=== PATIENT | male | born 1950 | race Caucasian/White ===

== ENCOUNTER 2019-12-11 17:28 | Emergency (ER) | payer OTHER ==
[2019-12-11 17:56] VITALS: BMI 26.3
[2019-12-11 18:09] VITALS: BP 120/76; PULSE 91; TEMP 98
== END 2019-12-11 18:13 | disposition home or self-care (01) ==
LOC: JER 17:28
DX: R05 Cough (principal); F10.929 Alcohol use, unspecified with intoxication, unspecified
CPT/HCPCS: 71045-TC-FY; 99283-25

== ENCOUNTER 2020-02-21 17:26 | Emergency (ER) | payer OTHER ==
[2020-02-21 17:36] VITALS: BMI 23.6
[2020-02-21] MEDS ORDERED: SODIUM CHLORIDE 0.9% 1000 ML INFUS.BAG IV ONE (17:51)
[2020-02-21] MEDS ORDERED: LORazepam 2 MG/ML SDV VIAL IVPUSH ONE (17:51)
[2020-02-21] MEDS ORDERED: LORazepam 2 MG/ML SDV VIAL ONE (17:53)
[2020-02-21] MEDS ORDERED: LIDOCAINE 5% TOPICAL PATCH TP ONE (18:09)
[2020-02-21 18:21] LABS: BASO % 0.7 % (0-2.0); HEMATOCRIT 38.6 % (35.4-49); HEMOGLOBIN 12.8 GM/dL (11.7-16.9); LYMPH % 15.9 % (8-40); MCH 30.9 pg (25.7-33.7); MCHC 33.1 g/dl (32.0-35.9); MEAN CELL VOLUME 93.3 fl (80-96); MEAN PLT VOLUME 7.3 fl (7.5-11.1); NEUT % 76.4 % (42.8-82.8); PLATELET COUNT 218 K/MM3 (134-434); RBC 4.14 M/mm3 (4.00-5.60); RDW 16.4 % (11.9-15.9); WHITE BLOOD COUNT 5.6 K/mm3 (4.0-10.0)
[2020-02-21] MEDS ORDERED: LIDOCAINE 5% TOPICAL PATCH ONE (18:25)
[2020-02-21 18:28] LABS: INR 0.94 (0.83-1.09); PROTHROMBIN TIME (PATIENT) 11.1 SEC (9.7-13.0)
[2020-02-21 18:31] LABS: ACTIVATED PTT 27.7 SECONDS (25.2-36.5)
--- NOTE | 2020-02-21 18:45 | PDOC ---
Documentation entered by Celso Corado SCRIBE, acting as scribe for Taylor Giang DO. Taylor Giang DO: This documentation has been prepared by the Mak sadler Xhesika, SCRIBE, under my direction and personally reviewed by me in its entirety. I confirm that the documentation accurately reflects all work, treatment, procedures, and medical decision making performed by me. History of Present Illness - General Chief Complaint: Alcohol intoxication Stated Complaint: HYPERTENSION Time Seen by Provider: 02/21/20 17:51 History Source: Patient, Spouse Exam Limitations: No Limitations - History of Present Illness Initial Comments: 02/21/20 18:09 The patient is a 69 year old male with a significant PMH of asthma, HLD, HTN, and etoh abuse who presents to the emergency department from PCP office for elevated BP and alcohol withdrawal. Per spouse at bedside, the pt saw his PCP for follow up and was noted to be hypertensive and tremulous, prompting his arrival to the ED. states the pt had a fall on 02/02 due to etoh intoxication and was noted to have Rib 7-9 fracture on XR. Pt reports L rib pain. states he drinks 1 pint of vodka daily. Pt states his last drink was 10pm yesterday. Pt's states he was last in detox 1 month ago. The patient denies chest pain, shortness of breath, headache and dizziness. Denies fever, chills, cough, nausea, vomiting, diarrhea and constipation. Allergies: NKDA PCP: Philomena Purcell Past History - Medical History Allergies/Adverse Reactions: Allergies Allergy/AdvReac Type Severity Reaction Status Date / Time No Known Drug Allergies Allergy Verified 02/21/20 18:21 cat Allergy Uncoded 02/21/20 18:06 dog Allergy Uncoded 02/21/20 18:06 seafood Allergy Uncoded 02/21/20 18:06 COPD: Yes HTN: Yes - Psycho-Social/Smoking History Smoking History: Former smoker Have you smoked in the past 12 months: No Information on smoking cessation initiated: No - Substance Abuse Hx (Audit-C & DAST Scrn) How often the patient has a drink containing alcohol: 4 0r more times/wk Number of drinks the patient has on a typical day: 10 or more Score: In Men: 4 or > Positive; In Women: 3 or > Positive: 8 Screen Result (Pos requires Nsg. Audit-10AR): Positive In the last yr the pt used illegal drug/Rx for NonMed reason: No Score: Yes response is considered Positive: 0 Screen Result (Positive result requires Nsg. DAST-10): Negative Review of Systems - Review of Systems Able to Perform ROS?: Yes Comments:: 02/21/20 18:12 GENERAL/CONSTITUTIONAL: No fever or chills. No weakness. +tremors HEAD, EYES, EARS, NOSE AND THROAT: No change in vision. No ear pain or discharge. No sore throat. CARDIOVASCULAR: No chest pain or shortness of breath. RESPIRATORY: No cough, wheezing, or hemoptysis. GASTROINTESTINAL: No nausea, vomiting, diarrhea or constipation. GENITOURINARY: No dysuria, frequency, or change in urination. MUSCULOSKELETAL: +L rib pain. No neck or back pain. SKIN: No rash NEUROLOGIC: No headache, vertigo, loss of consciousness, or change in strength/sensation. ENDOCRINE: No increased thirst. No abnormal weight change. HEMATOLOGIC/LYMPHATIC: No anemia, easy bleeding, or history of blood clots. ALLERGIC/IMMUNOLOGIC: No hives or skin allergy. *Physical Exam - Vital Signs Last Vital Signs Temp Pulse Resp BP Pulse Ox 98.5 F 120 H 20 160/93 96 02/21/20 17:33 02/21/20 17:33 02/21/20 17:33 02/21/20 17:33 02/21/20 17:33 - Physical Exam 02/21/20 18:13 GENERAL: Awake, alert, and fully oriented, in no acute distress. +tremulous HEAD: No signs of trauma EYES: PERRLA, EOMI, sclera anicteric, conjunctiva clear ENT: Auricles normal inspection, hearing grossly normal, nares patent, oropharynx clear without exudates. +tongue fasciculation NECK: Normal ROM, supple, no lymphadenopathy, JVD, or masses LUNGS: Breath sounds equal, clear to auscultation bilaterally. No wheezes, and no crackles HEART: +tachy, no murmurs, rubs or gallops ABDOMEN: Soft, nontender, normoactive bowel sounds. No guarding, no rebound. No masses UPPER EXTREMITIES: + L lower rib pain TTP. EXTREMITIES: Normal range of motion, no edema. No clubbing or cyanosis. No cords, erythema, or tenderness NEUROLOGICAL: Cranial nerves II through XII grossly intact. SKIN: Warm, Dry, normal turgor, no rashes lesions noted. Heart Score/ECG Review - ECG Intrepretation Comment:: 02/21/20 18:45 sinsu at 97, nl axis, nl interval, no acute st/t wave findings ED Treatment Course - LABORATORY CBC & Chemistry Diagram: 02/21/20 18:00 02/21/20 18:00 Medical Decision Making - Medical Decision Making 02/21/20 18:35 a/p: 69yo male with hx of etoh abuse who drinks 1 pint of vodka daily -pt last drink was yesterday -per the , he has been in and out of detox in the past -last detox was over 6 weeks ago -pt went to his PMD for a follow up for L rib fx from a fall in January 31 treated at [facility] for syncope/rib fx -pt c/o mild L rib pain, requesting lidoderm patch -pt sent from his PMD to the ER for eval of alcohol withdrawal symtpoms - tremulous, nauseated, tachy, hypertensive -pt has also been noncompliant with his BP meds -pt with tongue fasciculations and hand tremors -iv access obtained, labs sent, pt give ativan and ivf hydration -call placed to [facility] - he is willing to go to detox, pending labs, they have a bed available -HR and bp improved with ativan -tongue fasciculations improved 02/21/20 18:57 rib fx L chest cbc stable and reviewed etoh 76 02/21/20 19:29 labs reviewed and stable mag replaced bed available at [facility] stable for dc to [facility] for detox 02/21/20 19:40 pt stating feeling much better stable for dc to [facility] pt agreeable to go to detox Discharge - Discharge Information Problems reviewed: Yes Clinical Impression/Diagnosis: Alcohol intoxication, Alcohol withdrawal, Rib fractures Condition: Stable Disposition: HOME - Admission No - Follow up/Referral Referrals: Philomena Purcell MD [Primary Care Provider] - - Patient Discharge Instructions Patient Printed Discharge Instructions: DI for Alcohol Abuse, DI for Drug or Alcohol Withdrawal Additional Instructions: Please go straight to [facility] for detox. Please stop drinking alcohol. Please take all medications as prescribed. - Post Discharge Activity
[2020-02-21 19:04] LABS: ALBUMIN 3.9 g/dl (3.4-5.0); ALK PHOS 76 U/L (45-117); ANION GAP 17 MMOL/L (8-16); BILIRUBIN,TOTAL 0.7 mg/dL (0.2-1); BLOOD UREA NITROGEN 8.3 mg/dL (7-18); CALCIUM 8.7 mg/dL (8.5-10.1); CHLORIDE 102 mmol/L (98-107); CO2 22 mmol/L (21-32); CREATININE 0.9 mg/dL (0.55-1.3); GLUCOSE,RANDOM 72 mg/dL (74-106); MAGNESIUM 1.6 mg/dL (1.8-2.4); POTASSIUM 3.7 mmol/L (3.5-5.1); SGOT/AST 42 U/L (15-37); SGPT/ALT 33 U/L (13-61); SODIUM 140 mmol/L (136-145); TOT PROT 7.3 g/dl (6.4-8.2)
[2020-02-21] MEDS ORDERED: MAGNESIUM OXIDE 400 MG TABLET (FP) PO ONE (19:29)
[2020-02-21] MEDS ORDERED: MAGNESIUM OXIDE 400 MG TABLET (FP) ONE (19:44)
[2020-02-21 19:53] VITALS: BP 156/89; PULSE 100; TEMP 98.3
[2020-02-22] MEDS ORDERED: LIDOCAINE PATCH REMOVAL MC SCH (07:00)
--- NOTE | 2020-02-22 10:51 | EKG ---
Test Reason : Blood Pressure : / mmHG Vent. Rate : 097 BPM Atrial Rate : 097 BPM P-R Int : 170 ms QRS Dur : 076 ms QT Int : 382 ms P-R-T Axes : 065 051 067 degrees QTc Int : 485 ms NORMAL SINUS RHYTHM POSSIBLE LEFT ATRIAL ENLARGEMENT PROLONGED QT ABNORMAL ECG NO PREVIOUS ECGS AVAILABLE Confirmed by ANDREIA BANKS MD ([id number]) on 02/22/2020 10:51:32 AM Referred By: Confirmed By:ANDREIA BANKS MD
== END 2020-02-21 20:16 | disposition home or self-care (01) ==
LOC: JER 17:26
PROC: 3E033NZ Introduction of Analgesics, Hypnotics, Sedatives into Peripheral Vein, Percutaneous Approach (ICD-10-PCS; principal; 2020-02-21)
DX: F10.239 Alcohol dependence with withdrawal, unspecified (principal); S22.49XA Multiple fractures of ribs, unspecified side, initial encounter for closed fracture
CPT/HCPCS: 36415; 71045-TC-FY; 80053; 80307; 82550; 83735; 84443; 84484; 85025; 85610; 85730; 93005; 93010; 99285-25

== ENCOUNTER 2020-02-21 21:26 | Inpatient (IN) | payer OTHER ==
--- NOTE | 2020-02-21 22:37 | HP ---
CIWA Score Nausea/Vomitin-No Nausea/No Vomiting Muscle Tremors: 4-Moderate,w/Arms Extend Anxiety: 4-Mod. Anxious/Guarded Agitation: 4-Moderately Restless Paroxysmal Sweats: No Perspiration Orientation: 0-Oriented Tacttile Disturbances: 0-None Auditory Disturbances: 0-None Visual Disturbances: 0-None Headache: 0-None Present CIWA-Ar Total Score: 12 - Admission Criteria [facility] Guidelines: Admission for Medically Managed Detox: Requires at least one of the followin. CIWA greater than 12 2. Seizures within the past 24 hours 3. Delirium tremens within the past 24 hours 4. Hallucinations within the past 24 hours 5. Acute intervention needed for co occurring medical disorder 6. Acute intervention needed for co occurring psychiatric disorder 7. Severe withdrawal that cannot be handled at a lower level of care (continued vomiting, continued diarrhea, abnormal vital signs) requiring intravenous medication and/or fluids 8. Patient presents the following: CIWA greater than 12, Acute intervention needed for co-occurring med or psych disorder (s/p er eval for intoxicaton. stabilized with librium) Admission Criteria Met: Admission criteria met Admitting History and Physical - Smoking History Smoking history: Former smoker Have you smoked in the past 12 months: No Admission ROS [facility] Chief Complaint: c/o withdrawal sx's. seeking alcohol detox Allergies/Adverse Reactions: Allergies Allergy/AdvReac Type Severity Reaction Status Date / Time No Known Drug Allergies Allergy Verified 02/21/20 18:21 cat Allergy Uncoded 02/21/20 18:06 dog Allergy Uncoded 02/21/20 18:06 seafood Allergy Uncoded 02/21/20 18:06 History of Present Illness: HERE FOR ALCOHOL DETOX. CLIENT IS REFERRED BY [facility] AFTER HE PRESENTED THERE WITH ALCOHOL INTOXICATION. HE WAS STABILIZED WITH LIBRIUM AND TRANSFERRED FOR CONTINUATION OF TXMENT. CLIENT REPORTS DAILY ALCOHOL INTAKE. LAST USE 1 DAY AGO. PRESENTS WITH WITHDRAWAL SX'S. REPORTS + EYE ESTABLISHMENT GUIDE, + BLACK OUTS, DENIES WITHDRAWAL SZ. HX DETOX X2. LAST BEING6 MONTHS AGO.RELAPSING RIGHT AFTER DC. DENIES ANY CLEAN TIME IN THE PAST YEAR. A MATTER A FACT HE DENIES EVER HAVINGA PERIOD OF SOBRIETY. DENIES OTHER ILLICIT SUBSTANCE OF ABUSE. LIVES W/ , RETIRED, DENIES LEGALS. CLIENT REPORTS S/P FALL 2 WEEKS AGO. SEEN IN ER AND DC. C/O LEFT RIB PAIN 2/2 FALL AND A FEW HEALING ABRASIONS TO ARMS AND LEGS Exam Limitations: Physical Impairment ([place] LEFT EAR) - Ebola screening Have you traveled outside of the country in the last 21 days: No Have you had contact with anyone from an Ebola affected area: No Have you been sick,other than usual withdrawal symptoms: No Do you have a fever: No - Review of Systems Constitutional: Chills, Loss of Appetite, Night Sweats, Changes in sleep EENT: reports: Hearing Loss (LEFT) Respiratory: reports: No Symptoms reported Cardiac: reports: No Symptoms Reported GI: reports: Nausea, Vomiting : reports: No Symptoms Reported Musculoskeletal: reports: Other (LEFT FLANK PAIN 2/2 TO FALL 2 WEEKS AGO) Neuro: reports: Other (HEALING ABRASION TO R ARM) Endocrine: reports: No Symptoms Reported Hematology: reports: No Symptoms Reported Psychiatric: reports: Orientated x3, Anxious, Depressed Other Systems: Reviewed and Negative Patient History - Patient Medical History Hx Anemia: Yes Hx Asthma: No Hx Chronic Obstructive Pulmonary Disease (COPD): No Hx Cancer: No Hx Cardiac Disorders: No Hx Congestive Heart Failure: No Hx Hypertension: Yes Hx Hypercholesterolemia: No Hx Pacemaker: No HX Cerebrovascular Accident: No Hx Seizures: No Hx Dementia: No Hx Diabetes: No Hx Gastrointestinal Disorders: No Hx Liver Disease: No Hx Genitourinary Disorders: No Hx Sexually Transmitted Disorders: No Hx Renal Disease (ESRD): No Hx Thyroid Disease: No Hx Human Immunodeficiency Virus (HIV): No Hx Hepatitis C: No Hx Depression: Yes (NEVER TX'ED) Hx Suicide Attempt: No Hx Bipolar Disorder: No Hx Schizophrenia: No Other Medical History: ANXIETY - Patient Surgical History Past Surgical History: Yes Hx Orthopedic Surgery: Yes (R ARM FX REPAIR) Other Surgical History: LEFT EAR DEBRIDMENT Anesthesia Reaction: No - PPD History Previous Implant?: Yes Documented Results: Negative w/o proof Implanted On Prior [facility] Admission?: No PPD to be Administered?: Yes - Smoking Cessation Smoking history: Former smoker Have you smoked in the past 12 months: No Initiated information on smoking cessation: No - Substance & Tx. History Hx Alcohol Use: Yes Hx Substance Use: Yes Substance Use Type: Alcohol Hx Substance Use Treatment: Yes (DOES NOT RECALL) - Substances abused Alcohol Other (specify): VODKA Substance route: Oral Frequency: Daily Amount used: 1 PINT Age of first use: 15 Date of last use: 02/20/20 Admission Physical Exam [facility] - Physical General Appearance: Yes: Tremorous, Anxious HEENTM: Yes: EOMI, Normocephalic, Normal Voice, TYRESE, Pharynx Normal, Other (missing teeth) Respiratory: Yes: Chest Non-Tender, Lungs Clear, Normal Breath Sounds, No Respiratory Distress, No Accessory Muscle Use Neck: Yes: No masses,lesions,Nodules, Supple, Trachea in good position Breast: Yes: Breast Exam Deferred Cardiology: Yes: Regular Rhythm, S1, S2, Tachycardia Abdominal: Yes: Normal Bowel Sounds, Non Tender, Soft, Increased Bowel Sounds Genitourinary: Yes: Within Normal Limits Back: Yes: Normal Inspection, Other (left side rib tenderness) Musculoskeletal: Yes: full range of Motion, Other (unsteady gait) Extremities: Yes: Normal Capillary Refill, Normal Range of Motion, Non-Tender, Tremors Neurological: Yes: Fully Oriented, Alert, Motor Strength 5/5, Depressed Affect Integumentary: Yes: Dry, Warm, Other (healing abrasion to r forearm) Lymphatic: Yes: Within Normal Limits - Diagnostic (1) Alcohol dependence with withdrawal, uncomplicated Current Visit: Yes Status: Acute (2) Asthma Current Visit: Yes Status: Chronic Qualifiers: Asthma severity: mild Asthma persistence: intermittent Asthma complication type: uncomplicated Qualified Code(s): J45.20 - Mild intermittent asthma, uncomplicated (3) Rib pain on left side Current Visit: Yes Status: Acute Comment: S/P FALL 2 WEEKS AGO (4) HTN (hypertension) Current Visit: Yes Status: Chronic Qualifiers: Hypertension type: essential hypertension Qualified Code(s): I10 - Essential (primary) hypertension (5) Alcohol-induced mood disorder with depressive symptoms Current Visit: Yes Status: Suspected (6) Risk for falls Current Visit: Yes Status: Chronic Cleared for Admission [facility] - Detox or Rehab [facility] Level of Care: Medically Managed Detox Regimen/Protocol: Ativan Claeared for Rehab Admission: No Inpatient Rehab Admission - Rehab Decision to Admit Inpatient rehab admission?: No
[2020-02-21] MEDS ORDERED: MAGNESIUM CITRATE 300 ML BOTTLE PO PRN (22:45)
[2020-02-21] MEDS ORDERED: IBUPROFEN 400 MG TABLET (FP) PO PRN (22:45)
[2020-02-21] MEDS ORDERED: P-EPHED 60MG/TRIPROLIDI 2.5MG TABLET PO PRN (22:45)
[2020-02-21] MEDS ORDERED: DICYCLOMINE HCL 10 MG CAPSULE PO PRN (22:45)
[2020-02-21] MEDS ORDERED: METHOCARBAMOL 500 MG TABLET PO PRN (22:45)
[2020-02-21] MEDS ORDERED: ACETAMINOPHEN 325 MG TABLET (FP) PO PRN ×2 (22:45)
[2020-02-21] MEDS ORDERED: LORazepam 1 MG TABLET PO PRN (22:45)
[2020-02-21] MEDS ORDERED: MAGNESIUM HYDROX 2400MG/30ML ORAL SUSPENSION 30 ML CUP PO PRN (22:45)
[2020-02-21] MEDS ORDERED: ONDANSETRON *ODT* 4 MG TABLET SL ONE (22:45)
[2020-02-21] MEDS ORDERED: MENTHOL/PHENOL 1 EACH UD MM PRN (22:45)
[2020-02-21] MEDS ORDERED: BISMUTH SUBSALICYLATE 524 MG/30 ML UD PO PRN (22:45)
[2020-02-21] MEDS ORDERED: MAG HYDROX/AL HYDROX/SIMETH 30 ML UNIT-DOSE CUP PO PRN (22:45)
[2020-02-21] MEDS ORDERED: guaiFENesin 200 MG/10 ML 10 ML UNIT-DOSE CUPS PO PRN (22:45)
[2020-02-22] MEDS: LORazepam 2 MG TABLET PO SCH ×5 (01:03→23:08)
[2020-02-22] MEDS: PRENATAL VITAMINS W/ FOLIC ACID TABLET (FP) PO SCH (10:17)
--- NOTE | 2020-02-22 10:46 | PN ---
S CIWA - CIWA Score Nausea/Vomitin-No Nausea/No Vomiting Muscle Tremors: None Anxiety: 0-No Anxiety, at Ease Agitation: 0-Normal Activity Orientation: 1-Uncertain about Date Tacttile Disturbances: 0-None Auditory Disturbances: 0-None Visual Disturbances: 0-None Headache: 0-None Present S Progress Note (SOAP) Subjective: Patient was examined in the room. Patient was in no acute distress. Patient stated he is feeling better and had no further complaints. Objective: 02/22/20 10:47 General: Patient alert and in no acute distress, WNWD Mental status: Patient judgment intact MSK/Neuro: Patient MS 5/5 Gait: Patient ambulates properly, gait steady skin: no visible lesions, normal color Last Vital Signs Temp Pulse Resp BP Pulse Ox 97.8 F 98 H 18 138/77 97 02/22/20 08:55 02/22/20 08:55 02/22/20 08:55 02/22/20 08:55 02/22/20 08:55 Current Medications Generic Name Dose Route Start Last Admin Trade Name Freq PRN Reason Stop Dose Admin Acetaminophen 650 mg 02/21/20 22:45 Tylenol - PO Q6H PRN PAIN LEVEL 4 - 6 Acetaminophen 650 mg 02/21/20 22:45 Tylenol - PO Q6H PRN FEVER Al Hydroxide/Mg Hydroxide 30 ml 02/21/20 22:45 Mylanta Oral Suspension - PO Q6H PRN DYSPEPSIA Bismuth Subsalicylate 524 mg 02/21/20 22:45 Pepto-Bismol - PO Q1H PRN DIARRHEA Dicyclomine HCl 10 mg 02/21/20 22:45 Bentyl - PO 02/27/20 22:46 Q6H PRN Abdominal Cramping Eucalyptus/Menthol/Phenol/Sorbitol 1 each 02/21/20 22:45 Cepastat Lozenge - MM 02/27/20 22:45 Q4H PRN SORE THROAT Guaifenesin 10 ml 02/21/20 22:45 Robitussin - PO Q6H PRN COUGH Hydroxyzine Pamoate 25 mg 02/21/20 22:45 Vistaril - PO 02/27/20 22:46 Q4HWA PRN ANXIETY Ibuprofen 400 mg 02/21/20 22:45 Motrin - PO Q6H PRN PAIN LEVEL 1 - 3 Lidocaine 1 patch 02/22/20 10:00 Lidoderm Patch - TP DAILY [facility] Lorazepam 1 mg 02/23/20 05:00 Ativan - PO 02/23/20 23:01 0500,1100,1700,2300 [facility] Lorazepam 1 mg 02/21/20 22:45 Ativan - PO 02/23/20 23:59 Q4H PRN Symptoms of Withdrawal Lorazepam 2 mg 02/21/20 23:00 02/22/20 10:17 Ativan PO 02/22/20 23:01 2 mg 0500,1100,1700,2300 CAROL Administration Lorazepam 0.5 mg 02/24/20 05:00 Ativan - PO 02/24/20 23:01 Q6H CRAOL Lorazepam 0.5 mg 02/24/20 00:00 Ativan - PO 02/24/20 23:59 Q4H PRN Symptoms of Withdrawal Lorazepam 0.5 mg 02/25/20 05:00 Ativan - PO 02/25/20 05:01 ONCE ONE Magnesium Citrate 300 ml 02/21/20 22:45 Citroma - PO Q48H PRN CONSTIPATION Magnesium Hydroxide 30 ml 02/21/20 22:45 Milk Of Magnesia - PO PRN PRN CONSTIPATION Melatonin 5 mg 02/22/20 22:00 Melatonin PO HS [facility] Methocarbamol 500 mg 02/21/20 22:45 Robaxin - PO 02/27/20 22:45 Q6H PRN MUSCLE SPASMS Miscellaneous 1 each 02/22/20 22:00 Lidoderm Patch Removal MC DAILY@2200 [facility] Multivit/Folic Acid/Iron 1 tab 02/22/20 10:00 02/22/20 10:17 Vitamins ([facility]) - PO 1 tab DAILY [facility] Administration Pseudoephedrine/Triprolidine 1 combo 02/21/20 22:45 Actifed - PO Q6H PRN NASAL CONGESTION Thiamine HCl 100 mg 02/22/20 22:00 Vitamin B1 - PO HS [facility] Discontinued Medications Generic Name Dose Route Start Last Admin Trade Name Freq PRN Reason Stop Dose Admin Ondansetron HCl 4 mg 02/21/20 22:45 02/22/20 00:37 Zofran Odt - SL 02/21/20 22:46 4 mg ONCE ONE Administration Tuberculin PPD 5 units 02/21/20 22:45 02/22/20 01:05 Tubersol ([facility]) 5ml Vial ID 02/21/20 22:46 5 tu ONCE ONE Administration Assessment: 02/22/20 10:48 1. Patient has been started on ativan protocol for alcohol abuse. 02/22/20 10:52 Plan: 1. Patient currently on ativan protocol due to alcohol abuse.
[2020-02-22] MEDS: LIDOCAINE 5% TOPICAL PATCH TP SCH (11:21)
[2020-02-22 12:30] LABS: HEMATOCRIT 36.4 % (35.4-49); MCHC 33.1 g/dl (32.0-35.9); MEAN CELL VOLUME 93.9 fl (80-96); MEAN PLT VOLUME 7.8 fl (7.5-11.1); PLATELET COUNT 197 K/MM3 (134-434); RBC 3.88 M/mm3 (4.00-5.60); RDW 16.2 % (11.9-15.9); WHITE BLOOD COUNT 3.8 K/mm3 (4.0-10.0)
[2020-02-22 12:47] LABS: ALBUMIN 3.6 g/dl (3.4-5.0); BILIRUBIN,TOTAL 0.9 mg/dL (0.2-1); BLOOD UREA NITROGEN 7.8 mg/dL (7-18); CALCIUM 8.8 mg/dL (8.5-10.1); CREATININE 0.7 mg/dL (0.55-1.3); POTASSIUM 3.3 mmol/L (3.5-5.1)
[2020-02-22 12:49] LABS: TOT PROT 6.4 g/dl (6.4-8.2)
--- NOTE | 2020-02-22 13:02 | CONSULT ---
[facility] Psychiatric Consult - Data Date of interview: 02/22/20 Admission source: [facility] Identifying data: First visit to [facility] and admission to [address] [place] [address] for this 69 y/o male self-referred for detoxification treatment. DENEEN issue : alcohol. Patient is (living with spouse), father of three, domiciled, unemployed (retired from the [employer]) and supported on his pension benefits. Substance Abuse History: Discussed with the patient. DENEEN profile as follows : Smoking history: Former smoker. Have you smoked in the past 12 months: No. Initiated information on smoking cessation: No. Substance & Tx. History. Hx Alcohol Use: Yes. Hx Substance Use: Yes. Substance Use Type: Alcohol. Hx Substance Use Treatment: Yes (DOES NOT RECALL). Substances abused. Alcohol. Other (specify): VODKA. Substance route: Oral. Frequency: Daily. Amount used: 1 PINT. Age of first use: 15. Date of last use: 02/20/20 Medical History: Medical history is remarkable for anemia, hypertension and hearing impediment (left ear). History of recent falls (two weeks ago) during ETOH intoxication. Psychiatric History: Patient denies history of psychiatric hospitalizations, OPD care or suicide attempts. Physical/Sexual Abuse/Trauma History: No history of abuse (self-report). Additional Comment: Toxicology not found in H+P report. Mental Status Exam - Mental Status Exam Alert and Oriented to: Time, Place, Person Cognitive Function: Good Patient Appearance: Well Groomed (short stature) Mood: Withdrawn, Hopeful Affect: Appropriate, Normal Range Patient Behavior: Fatigued, Appropriate, Cooperative Speech Pattern: Clear, Appropriate Voice Loudness: Normal Thought Process: Intact, Goal Oriented Thought Disorder: Not Present Hallucinations: Denies Suicidal Ideation: Denies Homicidal Ideation: Denies Insight/Judgement: Poor Sleep: Well Appetite: Good Gait/Station: Normal Psychiatric Findings - Problem List ([place] 1, 2,3) (1) Alcohol dependence with withdrawal, uncomplicated Current Visit: Yes Status: Acute - Initial Treatment Plan Initial Treatment Plan: Psychoeducation. Sleep hygiene. Support. Detoxification. Observation.
[2020-02-22] MEDS ORDERED: PATIENT'S OWN MEDICATION (NON-FORMULARY) (Lisinopril/Hydrochlorothiazide [Lisinopril-Hctz PO SCH (16:00)
[2020-02-22 17:29] LABS: EPI CELLS 1 /uL (0-25.1); HYALINE CASTS 3 /uL (0-3.1); PH,URINE >= 9.0 (5.0-8.0); URINE APPEARANCE CLEAR; URINE BACTERIA >9,000 /uL (0-1359); URINE BILIRUBIN NEGATIVE (NEGATIVE); URINE COLOR YELLOW; URINE GLUCOSE (UA) NEGATIVE (NEGATIVE); URINE KETONE TRACE (NEGATIVE); URINE LEUK ESTERASE 2+ (NEGATIVE); URINE NITRITE POSITIVE (NEGATIVE); URINE PROTEIN TRACE (NEGATIVE); URINE RBC 40 /uL (0-23.9); URINE WBC 254 /uL (0-25.8)
[2020-02-22] MEDS: HYDROCHLOROTHIAZIDE 12.5 MG CAPSULE (FP) PO SCH (18:32)
[2020-02-22] MEDS: LISINOPRIL 10 MG TABLET (FP) PO SCH (18:32)
[2020-02-22] MEDS: amLODIPine BESYLATE 5 MG TABLET (FP) PO SCH (18:33)
[2020-02-22] MEDS: LIDOCAINE PATCH REMOVAL MC SCH (23:07)
[2020-02-22] MEDS: MELATONIN 5 MG TABLETS PO SCH (23:08)
[2020-02-22] MEDS: THIAMINE HCL 100 MG TABLET (FP) PO SCH (23:08)
[2020-02-23] MEDS: LORazepam 1 MG TABLET PO SCH ×4 (05:50→23:01)
--- NOTE | 2020-02-23 10:02 | PN ---
S CIWA - CIWA Score Nausea/Vomitin-No Nausea/No Vomiting Muscle Tremors: 2 Anxiety: 3 Agitation: 0-Normal Activity Paroxysmal Sweats: 3 Orientation: 0-Oriented Tacttile Disturbances: 0-None Auditory Disturbances: 0-None Visual Disturbances: 0-None Headache: 0-None Present CIWA-Ar Total Score: 8 [facility] Progress Note (SOAP) Subjective: c/o anxiety, shakes, and sweats. Objective: 02/23/20 10:01 Vital Signs 02/23/20 02/23/20 06:40 09:44 Temperature 97.9 F 97.4 F L Pulse Rate 88 87 Respiratory 18 18 Rate Blood Pressure 129/79 126/63 O2 Sat by Pulse 96 96 Oximetry (%) Laboratory Last Values WBC 3.8 K/mm3 (4.0-10.0) L 02/22/20 08:40 RBC 3.88 M/mm3 (4.00-5.60) L 02/22/20 08:40 Hgb 12.0 GM/dL (11.7-16.9) 02/22/20 08:40 Hct 36.4 % (35.4-49) 02/22/20 08:40 MCV 93.9 fl (80-96) 02/22/20 08:40 MCH 31.0 pg (25.7-33.7) 02/22/20 08:40 MCHC 33.1 g/dl (32.0-35.9) 02/22/20 08:40 RDW 16.2 % (11.9-15.9) H 02/22/20 08:40 Plt Count 197 K/MM3 (134-434) 02/22/20 08:40 MPV 7.8 fl (7.5-11.1) 02/22/20 08:40 Sodium 139 mmol/L (136-145) 02/22/20 08:40 Potassium 3.3 mmol/L (3.5-5.1) L 02/22/20 08:40 Chloride 100 mmol/L (98-107) 02/22/20 08:40 Carbon Dioxide 29 mmol/L (21-32) 02/22/20 08:40 Anion Gap 10 MMOL/L (8-16) 02/22/20 08:40 BUN 7.8 mg/dL (7-18) 02/22/20 08:40 Creatinine 0.7 mg/dL (0.55-1.3) 02/22/20 08:40 Est GFR (CKD-EPI)AfAm 111.60 02/22/20 08:40 Est GFR (CKD-EPI)NonAf 96.29 02/22/20 08:40 Random Glucose 111 mg/dL (74-106) H 02/22/20 08:40 Calcium 8.8 mg/dL (8.5-10.1) 02/22/20 08:40 Total Bilirubin 0.9 mg/dL (0.2-1) 02/22/20 08:40 AST 29 U/L (15-37) 02/22/20 08:40 ALT 26 U/L (13-61) 02/22/20 08:40 Alkaline Phosphatase 66 U/L (45-117) 02/22/20 08:40 Total Protein 6.4 g/dl (6.4-8.2) 02/22/20 08:40 Albumin 3.6 g/dl (3.4-5.0) 02/22/20 08:40 Urine Color Yellow 02/22/20 16:00 Urine Appearance Clear 02/22/20 16:00 Urine pH >= 9.0 (5.0-8.0) H 02/22/20 16:00 Ur Specific [place] 1.016 (1.010-1.035) 02/22/20 16:00 Urine Protein Trace (NEGATIVE) 02/22/20 16:00 Urine Glucose (UA) Negative (NEGATIVE) 02/22/20 16:00 Urine Ketones Trace (NEGATIVE) H 02/22/20 16:00 Urine Blood Negative (NEGATIVE) 02/22/20 16:00 Urine Nitrite Positive (NEGATIVE) H 02/22/20 16:00 Urine Bilirubin Negative (NEGATIVE) 02/22/20 16:00 Urine Urobilinogen 1.0 mg/dL (0.2-1.0) 02/22/20 16:00 Ur Leukocyte Esterase 2+ (NEGATIVE) H 02/22/20 16:00 Urine WBC (Auto) 254 /uL (0-25.8) 02/22/20 16:00 Urine RBC (Auto) 40 /uL (0-23.9) 02/22/20 16:00 Urine Casts (Auto) 3 /uL (0-3.1) 02/22/20 16:00 U Epithel Cells (Auto) 1 /uL (0-25.1) 02/22/20 16:00 Urine Bacteria (Auto) >9,000 /uL (0-1359) 02/22/20 16:00 Syphilis Serology Non-reactive (NONREACTIVE) 02/22/20 08:40 HIV Ag/Ab Combo Qual Negative (NEGATIVE) 02/22/20 08:40 02/23/20 10:03 Labs noted with low K+ level, urinalysis with positive nitrate/leukocyte esterase trace. Assessment: 02/23/20 10:06 AOX3, in no acute respiratory distress. Full ROM, ambulating in the unit. Withdrawal symptoms. UTI. Hypokalemia. Plan: continue detox. Increase fluids. potassium chloride 40meq po x1dose. Cipro 500mg po bid x7days. Repeat K+ level in AM.
[2020-02-23] MEDS ORDERED: POTASSIUM CHLORIDE TABS 20 MEQ TABLET.ER (FP) PO ONE (10:09)
[2020-02-23] MEDS ORDERED: CIPROFLOXACIN 500 MG TABLET (RESTRICTED TO ID) PO SCH (10:15)
[2020-02-23] MEDS: PRENATAL VITAMINS W/ FOLIC ACID TABLET (FP) PO SCH (11:15)
[2020-02-23] MEDS: amLODIPine BESYLATE 5 MG TABLET (FP) PO SCH (11:15)
[2020-02-23] MEDS: LISINOPRIL 10 MG TABLET (FP) PO SCH (11:15)
[2020-02-23] MEDS: LIDOCAINE 5% TOPICAL PATCH TP SCH (11:15)
[2020-02-23] MEDS: HYDROCHLOROTHIAZIDE 12.5 MG CAPSULE (FP) PO SCH (11:17)
[2020-02-23] MEDS ORDERED: CLOTRIMAZOLE 1% 10 ML TOPICAL SOLUTION TP SCH (12:15)
--- NOTE | 2020-02-23 15:00 | EKG ---
Test Reason : Blood Pressure : / mmHG Vent. Rate : 099 BPM Atrial Rate : 099 BPM P-R Int : 168 ms QRS Dur : 074 ms QT Int : 378 ms P-R-T Axes : 069 043 060 degrees QTc Int : 485 ms POOR DATA QUALITY, INTERPRETATION MAY BE ADVERSELY AFFECTED NORMAL SINUS RHYTHM PROLONGED QT ABNORMAL ECG WHEN COMPARED WITH ECG OF 21-FEB-2020 18:23, NO SIGNIFICANT CHANGE WAS FOUND Confirmed by Douglas Arrington ([id number]) on 02/23/2020 3:00:28 PM Referred By: Александр Lynn Confirmed By:Douglas Arrington
[2020-02-23] MEDS: hydrOXYzine PAMOATE 25 MG CAPSULE (FP) PO PRN ×2 (19:32→23:00)
[2020-02-23] MEDS: MELATONIN 5 MG TABLETS PO SCH (23:00)
[2020-02-23] MEDS: THIAMINE HCL 100 MG TABLET (FP) PO SCH (23:00)
[2020-02-23] MEDS: LIDOCAINE PATCH REMOVAL MC SCH (23:00)
[2020-02-24] MEDS ORDERED: LORazepam 0.5 MG TABLET PO PRN
[2020-02-24] MEDS: LORazepam 0.5 MG TABLET PO SCH ×4 (05:53→22:11)
[2020-02-24] MEDS: PRENATAL VITAMINS W/ FOLIC ACID TABLET (FP) PO SCH (10:33)
[2020-02-24] MEDS: LISINOPRIL 10 MG TABLET (FP) PO SCH (10:34)
[2020-02-24] MEDS: LIDOCAINE 5% TOPICAL PATCH TP SCH (10:34)
[2020-02-24] MEDS: amLODIPine BESYLATE 5 MG TABLET (FP) PO SCH (10:34)
[2020-02-24] MEDS: HYDROCHLOROTHIAZIDE 12.5 MG CAPSULE (FP) PO SCH (10:34)
--- NOTE | 2020-02-24 13:00 | PN ---
S CIWA - CIWA Score Nausea/Vomitin-No Nausea/No Vomiting Muscle Tremors: 2 Anxiety: 1-Mildly Anxious Agitation: 1-Slight > Activity Paroxysmal Sweats: No Perspiration Orientation: 0-Oriented Tacttile Disturbances: 0-None Auditory Disturbances: 0-None Visual Disturbances: 2-Mild Sensitivity Headache: 0-None Present CIWA-Ar Total Score: 6 BHS Progress Note (SOAP) Subjective: 69 years old male was admitted on 02/21/20 for alcohol withdrawal sx management treating with ativan detox regiment seen by psychiatrist no medical intervention feels better today less tremor discuss aftercare with staff prefers new focus Objective: 02/24/20 13:01 Vital Signs - 24 hr 02/23/20 02/23/20 02/23/20 13:57 16:46 20:35 Temperature 97.3 F L 96.9 F L 97.3 F L Pulse Rate 112 H 89 99 H Respiratory 18 18 18 Rate Blood Pressure 140/90 121/68 139/82 O2 Sat by Pulse 98 98 98 Oximetry (%) 02/24/20 02/24/20 06:27 08:55 Temperature 97.9 F 96.9 F L Pulse Rate 63 91 H Respiratory 18 16 Rate Blood Pressure 101/60 113/67 O2 Sat by Pulse 100 100 Oximetry (%) Laboratory Tests 02/21/20 02/22/20 02/22/20 11:20 08:40 08:40 WBC 3.8 L RBC 3.88 L Hgb 12.0 Hct 36.4 MCV 93.9 MCH 31.0 MCHC 33.1 RDW 16.2 H Plt Count 197 MPV 7.8 Sodium Potassium Chloride Carbon Dioxide Anion Gap BUN Creatinine Est GFR (CKD-EPI)AfAm Est GFR (CKD-EPI)NonAf Random Glucose Calcium Total Bilirubin AST ALT Alkaline Phosphatase Total Protein Albumin Urine Color Urine Appearance Urine pH Ur Specific [place] Urine Protein Urine Glucose (UA) Urine Ketones Urine Blood Urine Nitrite Urine Bilirubin Urine Urobilinogen Ur Leukocyte Esterase Urine WBC (Auto) Urine RBC (Auto) Urine Casts (Auto) U Epithel Cells (Auto) Urine Bacteria (Auto) Syphilis Serology Non-reactive COVID-19 ([facility]) Not detected HIV Ag/Ab Combo Qual 02/22/20 02/22/20 02/22/20 08:40 08:40 16:00 WBC RBC Hgb Hct MCV MCH MCHC RDW Plt Count MPV Sodium 139 Potassium 3.3 L Chloride 100 Carbon Dioxide 29 Anion Gap 10 BUN 7.8 Creatinine 0.7 Est GFR (CKD-EPI)AfAm 111.60 Est GFR (CKD-EPI)NonAf 96.29 Random Glucose 111 H Calcium 8.8 Total Bilirubin 0.9 AST 29 ALT 26 Alkaline Phosphatase 66 Total Protein 6.4 Albumin 3.6 Urine Color Yellow Urine Appearance Clear Urine pH >= 9.0 H Ur Specific [place] 1.016 Urine Protein Trace Urine Glucose (UA) Negative Urine Ketones Trace H Urine Blood Negative Urine Nitrite Positive H Urine Bilirubin Negative Urine Urobilinogen 1.0 Ur Leukocyte Esterase 2+ H Urine WBC (Auto) 254 Urine RBC (Auto) 40 Urine Casts (Auto) 3 U Epithel Cells (Auto) 1 Urine Bacteria (Auto) >9,000 Syphilis Serology COVID-19 ([facility]) HIV Ag/Ab Combo Qual Negative 02/24/20 13:02 uti mr henson is on levoquen Assessment: 02/24/20 13:02 alcohol withdrawal uti Plan: ativan regiment
[2020-02-24] MEDS: hydrOXYzine PAMOATE 25 MG CAPSULE (FP) PO PRN (17:56)
[2020-02-24] MEDS: MELATONIN 5 MG TABLETS PO SCH (22:11)
[2020-02-24] MEDS: THIAMINE HCL 100 MG TABLET (FP) PO SCH (22:11)
[2020-02-24] MEDS: LIDOCAINE PATCH REMOVAL MC SCH (22:11)
[2020-02-25] MEDS ORDERED: LORazepam 0.5 MG TABLET PO ONE (05:00)
--- NOTE | 2020-02-25 09:49 | DS ---
[facility] Detox Discharge Summary Admission Date: 02/21/20 Discharge Date: 02/25/20 - History Present History: Alcohol Dependence Additional Comments: 69 years old male was admitted on 02/21/20 for alcohol withdrawal sx management treated with ativan detox regiment seen by psychiatrist no medical intervention mr henson has completed the ativan regiment and is tolerated well General Appearance: Yes: less Tremorous, mild Anxious HEENTM: Yes: EOMI, Normocephalic, Normal Voice, TYRESE, Pharynx Normal, Other (missing teeth) Respiratory: Yes: Chest Non-Tender, Lungs Clear, Normal Breath Sounds, No Respiratory Distress, No Accessory Muscle Use Neck: Yes: No masses,lesions,Nodules, Supple, Trachea in good position Breast: Yes: Breast Exam Deferred Cardiology: Yes: Regular Rhythm, S1, S2, Tachycardia Abdominal: Yes: Normal Bowel Sounds, Non Tender, Soft, Increased Bowel Sounds Genitourinary: Yes: Within Normal Limits Back: Yes: Normal Inspection, Other (left side rib tenderness) Musculoskeletal: Yes: full range of Motion, Other (unsteady gait) Extremities: Yes: Normal Capillary Refill, Normal Range of Motion, Non-Tender, less Tremors Neurological: Yes: Fully Oriented, Alert, Motor Strength 5/5, Depressed Affect Integumentary: Yes: Dry, Warm, Other (healing abrasion to r forearm) Lymphatic: Yes: Within Normal Limits Pertinent Past History: time for discharge 35 minutes - Physical Exam Results Vital Signs: Vital Signs Temperature 97.2 F L 02/25/20 07:00 Pulse Rate 70 02/25/20 07:00 Respiratory Rate 18 02/25/20 07:00 Blood Pressure 120/73 02/25/20 07:00 O2 Sat by Pulse Oximetry (%) 97 02/25/20 07:00 Pertinent Admission Physical Exam Findings: alcohol withdrawal Laboratory Tests 02/21/20 02/22/20 02/22/20 11:20 08:40 08:40 WBC 3.8 L RBC 3.88 L Hgb 12.0 Hct 36.4 MCV 93.9 MCH 31.0 MCHC 33.1 RDW 16.2 H Plt Count 197 MPV 7.8 Sodium Potassium Chloride Carbon Dioxide Anion Gap BUN Creatinine Est GFR (CKD-EPI)AfAm Est GFR (CKD-EPI)NonAf Random Glucose Calcium Total Bilirubin AST ALT Alkaline Phosphatase Total Protein Albumin Urine Color Urine Appearance Urine pH Ur Specific [place] Urine Protein Urine Glucose (UA) Urine Ketones Urine Blood Urine Nitrite Urine Bilirubin Urine Urobilinogen Ur Leukocyte Esterase Urine WBC (Auto) Urine RBC (Auto) Urine Casts (Auto) U Epithel Cells (Auto) Urine Bacteria (Auto) Syphilis Serology Non-reactive COVID-19 ([facility]) Not detected HIV Ag/Ab Combo Qual 02/22/20 02/22/20 02/22/20 08:40 08:40 16:00 WBC RBC Hgb Hct MCV MCH MCHC RDW Plt Count MPV Sodium 139 Potassium 3.3 L Chloride 100 Carbon Dioxide 29 Anion Gap 10 BUN 7.8 Creatinine 0.7 Est GFR (CKD-EPI)AfAm 111.60 Est GFR (CKD-EPI)NonAf 96.29 Random Glucose 111 H Calcium 8.8 Total Bilirubin 0.9 AST 29 ALT 26 Alkaline Phosphatase 66 Total Protein 6.4 Albumin 3.6 Urine Color Yellow Urine Appearance Clear Urine pH >= 9.0 H Ur Specific [place] 1.016 Urine Protein Trace Urine Glucose (UA) Negative Urine Ketones Trace H Urine Blood Negative Urine Nitrite Positive H Urine Bilirubin Negative Urine Urobilinogen 1.0 Ur Leukocyte Esterase 2+ H Urine WBC (Auto) 254 Urine RBC (Auto) 40 Urine Casts (Auto) 3 U Epithel Cells (Auto) 1 Urine Bacteria (Auto) >9,000 Syphilis Serology COVID-19 ([facility]) HIV Ag/Ab Combo Qual Negative continue levaquin in the community x 7 days for uti - Treatment Hospital Course: Detox Protocol Followed, Detoxed Safely, Responded well, Discharged Condition Good, Rehab Referral Accepted Patient has Accepted a Rehab Referral to: [facility] - Medication Discharge Medications: Ambulatory Orders Amlodipine Besylate 5 mg PO DAILY 02/22/20 Lisinopril/Hydrochlorothiazide [Lisinopril-Hctz 10-12.5 mg Tab] 1 each PO DAILY 02/22/20 levoFLOXacin [Levaquin -] 500 mg PO DAILY@0600 #7 tablet 02/25/20 - Diagnosis (1) Substance induced mood disorder Current Visit: Yes Status: Suspected (2) Alcohol dependence with withdrawal, uncomplicated Current Visit: Yes Status: Acute (3) Asthma Current Visit: Yes Status: Chronic Qualifiers: Asthma severity: mild Asthma persistence: intermittent Asthma complication type: uncomplicated Qualified Code(s): J45.20 - Mild intermittent asthma, uncomplicated (4) HTN (hypertension) Current Visit: Yes Status: Chronic Qualifiers: Hypertension type: essential hypertension Qualified Code(s): I10 - Essential (primary) hypertension - AMA Did Patient Leave Against Medical Advice: No CIWA Score - CIWA Score Nausea/Vomitin-No Nausea/No Vomiting Muscle Tremors: 2 Anxiety: 1-Mildly Anxious Agitation: 0-Normal Activity Paroxysmal Sweats: No Perspiration Orientation: 0-Oriented Tacttile Disturbances: 0-None Auditory Disturbances: 0-None Visual Disturbances: 1-Very Mild Sensitivity Headache: 0-None Present CIWA-Ar Total Score: 4
[2020-02-25 10:02] VITALS: BP 105/79; PULSE 133; TEMP 97.3
== END 2020-02-25 09:23 | disposition home or self-care (01) | DRG 897 ==
LOC: YASAS 21:26 → Y3N 22:29
PROVIDERS: ADMIT Allergy & Immunology; ATTEND Allergy & Immunology
PROC: HZ2ZZZZ Detoxification Services for Substance Abuse Treatment (ICD-10-PCS; principal; 2020-02-21)
DX: F10.230 Alcohol dependence with withdrawal, uncomplicated (principal); N39.0 Urinary tract infection, site not specified; F17.211 Nicotine dependence, cigarettes, in remission; F19.24 Other psychoactive substance dependence with psychoactive substance-induced mood disorder; F10.24 Alcohol dependence with alcohol-induced mood disorder; F41.9 Anxiety disorder, unspecified; D64.9 Anemia, unspecified; E87.6 Hypokalemia; H91.92 Unspecified hearing loss, left ear; I10 Essential (primary) hypertension; J45.20 Mild intermittent asthma, uncomplicated; R07.81 Pleurodynia; Z91.81 History of falling; S40.812D Abrasion of left upper arm, subsequent encounter; S40.811D Abrasion of right upper arm, subsequent encounter; S80.812D Abrasion, left lower leg, subsequent encounter; S80.811D Abrasion, right lower leg, subsequent encounter; W19.XXXD Unspecified fall, subsequent encounter; Z91.018 Allergy to other foods; Z91.048 Other nonmedicinal substance allergy status
CPT/HCPCS: 36415; 80053; 81003; 85027; 86780; 87389; 93005; 93010; Q0162; U0003